=== PATIENT | female | born 1965 | race Caucasian/White ===

== ENCOUNTER → 2018-04-29 | Outpatient (REF) | payer SELFPAY ==
[~2018-04-29] MED LIST: CIPR-214 PO; PHEN200T32 PO
[2018-04-29 19:06] LABS: PLATELET COUNT, AUTOMATED 243 K/uL (150-450)
== END ==
PROVIDERS: ATTEND Physician Assistant Medical
DX: R19.7 Diarrhea, unspecified (principal)
CPT/HCPCS: 82040; 82247; 82310; 82374; 82435; 82565; 82947; 84075; 84132; 84155; 84295; 84450; 84460; 84520; 85025